=== PATIENT | male | born 1985 | race Caucasian/White ===

== ENCOUNTER 2019-06-16 03:09 | Emergency (ER) | payer SELFPAY ==
[~2019-06-16] VITALS: Ht 180.3 cm; Wt 81.6 kg
--- NOTE | 2019-06-16 03:10 | NUR ---
ED Nurse Note: PT BIBA RA 861 FROM HOME C/O GENERALIZED JOINT PAIN 01/12. PT DENIES FEVER OR FLANK PAIN. VSS, NAD. ERMD AT BEDSIDE
--- NOTE | 2019-06-16 03:15 | NUR ---
ED Nurse Note: BLOOD AND URINE COLLECTED AND SENT TO LAB
[2019-06-16] MEDS ORDERED: Ketorolac 30mg Inj IV ONE (03:30)
[2019-06-16] MEDS ORDERED: LORazepam Inj 2mg/ml 1ml IV ONE (03:30)
--- NOTE | 2019-06-16 03:31 | Emergency Room Report ---
History of Present Illness General Chief Complaint: Pain Source: Patient, EMS Present Illness HPI Disclaimer: Please note that this report is being documented using DRAGON technology. This can lead to erroneous entry secondary to incorrect interpretation by the dictating instrument. HPI: 34-year-old male history of ulcerative colitis presents for evaluation of joint pain. Complaining of pain sudden onset in his knees and elbows bilaterally. Cannot recall an injury. No prior history of similar pain. He has been started on prednisone for treatment of ulcerative colitis. No other changes in his medications. Did not take any medication prior to arrival. Denies limitation of range of motion, swelling, overlying cellulitis, redness, stiffness. States the pain is inside the joints feels like a burning and throbbing. Denies radiation of the pain. Denies any fevers, chills. Denies dysuria, hematuria. Denies abdominal pain, nausea, vomiting. PMH: Ulcerative colitis PSH: Multiple colonoscopies Allergies: Denies Social Hx: Denies COVID-19 risk:Travel to affect: No Has patient experienced mike: No Allergies: Coded Allergies: No Known Allergies (Unverified , 06/16/19) Nursing Documentation-PMH Past Medical History: No History, Except For Hx Gastrointestinal Problems: Yes - ULCERATIVE COLITIS Review of Systems All Other Systems: negative except mentioned in HPI Physical Exam Vital Signs Date Time Temp Pulse Resp B/P (MAP) Pulse Ox O2 Delivery O2 Flow Rate FiO2 06/16/19 03:04 98.2 98 140/92 (108) 99 Room Air General: Awake and alert, uncomfortable, writhing in bed HEENT: NC/AT. EOMI. Cardiovascular: RRR. S1 and S2 normal. No murmur appreciated Resp: Normal work of breathing. No cough, wheezing or crackles appreciated Abdomen: Abdomen is soft, nondistended. Nontender Skin: Intact. No abrasions, laceration or rash over the exposed skin MSK: Normal tone and bulk. Moving all extremities. No obvious deformity. Able to flex and extend pronate and supinate at the elbows. Able to flex and extend at the hips, knees and ankles. Neuro: Awake and alert. Mentating appropriately. Medical Decision Making Diagnostic Impression: Primary Impression: Polyarthritis ER Course 34-year-old male presents for evaluation of bilateral elbow and knee pain beginning acutely yesterday worsening throughout the day. He denies fever, chills arrives with stable vital signs though appears to be in acute distress regarding this pain. He is writhing in bed and difficult to redirect. Differential includes but is not limited to Inflammatory arthritis, rheumatoid arthritis, septic joints, osteoarthritis, spasticity, electrolyte abnormality, sepsis. Denies recent fever, URI symptoms, travel or exposure to sick contacts. Will obtain labs, inflammatory markers, treat the patient's pain and his anxiety. Septic joint is low on the differential as there is no edema, warmth, swelling or overlying erythema of any of the joints. Laboratory Tests Test 06/16/19 03:53 White Blood Count 17.2 K/UL (4.8-10.8) H Red Blood Count 4.36 M/UL (4.70-6.10) L Hemoglobin 9.6 G/DL (14.2-18.0) L Hematocrit 30.4 % (42.0-52.0) L Mean Corpuscular Volume 70 FL (80-99) L Mean Corpuscular Hemoglobin 22.0 PG (27.0-31.0) L Mean Corpuscular Hemoglobin Concent 31.4 G/DL (32.0-36.0) L Red Cell Distribution Width 26.7 % (11.6-14.8) H Platelet Count 897 K/UL (150-450) H Mean Platelet Volume 4.6 FL (6.5-10.1) L Neutrophils (%) (Auto) % (45.0-75.0) Lymphocytes (%) (Auto) % (20.0-45.0) Monocytes (%) (Auto) % (1.0-10.0) Eosinophils (%) (Auto) % (0.0-3.0) Basophils (%) (Auto) % (0.0-2.0) Differential Total Cells Counted 100 Neutrophils % (Manual) 70 % (45-75) Lymphocytes % (Manual) 20 % (20-45) Monocytes % (Manual) 8 % (1-10) Eosinophils % (Manual) 1 % (0-3) Basophils % (Manual) 1 % (0-2) Band Neutrophils 0 % (0-8) Platelet Estimate Increased H Platelet Morphology Normal Erythrocyte Sedimentation Rate 16 MM/HR (0-15) H Urine Color Pale yellow Urine Appearance Clear Urine pH 7 (4.5-8.0) Urine Specific [place] 1.015 (1.005-1.035) Urine Protein Negative (NEGATIVE) Urine Glucose (UA) Negative (NEGATIVE) Urine Ketones Negative (NEGATIVE) Urine Blood Negative (NEGATIVE) Urine Nitrite Negative (NEGATIVE) Urine Bilirubin Negative (NEGATIVE) Urine Urobilinogen Normal MG/DL (0.0-1.0) Urine Leukocyte Esterase Negative (NEGATIVE) Sodium Level 137 MMOL/L (136-145) Potassium Level 4.1 MMOL/L (3.5-5.1) Chloride Level 100 MMOL/L (98-107) Carbon Dioxide Level 25 MMOL/L (21-32) Anion Gap 12 mmol/L (5-15) Blood Urea Nitrogen 13 mg/dL (7-18) Creatinine 1.0 MG/DL (0.55-1.30) Estimate Glomerular Filtration Rate > 60 mL/min (>60) Glucose Level 112 MG/DL (74-106) H Uric Acid 6.9 MG/DL (2.6-7.2) Calcium Level 8.4 MG/DL (8.5-10.1) L C-Reactive Protein, Quantitative 1.8 mg/dL (0.00-0.90) H Urine Opiates Screen Negative (NEGATIVE) Urine Barbiturates Screen Negative (NEGATIVE) Phencyclidine (PCP) Screen Negative (NEGATIVE) Urine Amphetamines Screen Negative (NEGATIVE) Urine Benzodiazepines Screen Negative (NEGATIVE) Urine Cocaine Screen Negative (NEGATIVE) Urine Marijuana (THC) Screen Negative (NEGATIVE) Reevaluation Time: 06:31 Last Vital Signs Date Time Temp Pulse Resp B/P (MAP) Pulse Ox O2 Delivery O2 Flow Rate FiO2 06/16/19 03:04 98.2 98 140/92 (108) 99 Room Air Reevaluation Impression Labs show an elevation of white count of 17.2 but a normal differential. ESR and CRP are slightly elevated, chemistry within normal limits, UA and tox screen unremarkable. White count is likely due to his high-dose steroids. No signs of infection. Patient feels better after receiving his pain medication. Believe this is an inflammatory arthritis likely related to his ulcerative colitis. 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 We will discharge on ibuprofen and give a short course of breakthrough pain medication to use as needed. Also instructed him to follow- up with his PMD for referral to a rent and miscellaneous remittance clerk. We also discussed signs and symptoms of septic arthritis and other concerning signs and symptoms. He will follow-up with his PMD and his automatic spinning lathe setter. Disposition: HOME, SELF-CARE Condition: Improved Scripts Hydrocodone Bit/Acetaminophen 5-325* (NORCO 5-325 TABLET*) 1 Each Tablet 1 TAB ORAL Q6H PRN for FOR PAIN, #10 TAB 0 Refills Prov: Kenton Mcclelland MD 06/16/19 Ibuprofen* (MOTRIN*) 600 Mg Tablet 600 MG ORAL Q8H PRN for For Pain, #30 TAB 0 Refills Prov: Kenton Mcclelland MD 06/16/19 Referrals: NOT CHOSEN IPA/,REFERRING (PCP) Kenton Mcclelladn MD Jun 16, 2019 03:31
[2019-06-16 03:58] LABS: HEMATOCRIT 30.4 % (42.0-52.0); HEMOGLOBIN 9.6 G/DL (14.2-18.0); MEAN CORPUSCULAR VOLUME 70 FL (80-99); PLATELET COUNT 897 K/UL (150-450); RED BLOOD COUNT 4.36 M/UL (4.70-6.10); RED CELL DISTRIBUTION WIDTH 26.7 % (11.6-14.8); WHITE BLOOD COUNT 17.2 K/UL (4.8-10.8)
[2019-06-16 04:00] VITALS: BP 155/92
[2019-06-16 04:06] LABS: ANION GAP 12 mmol/L (5-15); BLOOD UREA NITROGEN 13 mg/dL (7-18); CALCIUM 8.4 MG/DL (8.5-10.1); CARBON DIOXIDE 25 MMOL/L (21-32); CHLORIDE 100 MMOL/L (98-107); POTASSIUM 4.1 MMOL/L (3.5-5.1); SODIUM 137 MMOL/L (136-145)
[2019-06-16 04:07] LABS: APPEARANCE,URINE CLEAR; BILIRUBIN, URINE NEGATIVE (NEGATIVE); COLOR,URINE PALE YELLOW; GLUCOSE, URINE (UA) NEGATIVE (NEGATIVE); KETONES,URINE NEGATIVE (NEGATIVE); LEUKOCYTE ESTERASE ,URINE NEGATIVE (NEGATIVE); NITRITE,URINE NEGATIVE (NEGATIVE); PH,URINE 7 (4.5-8.0); PROTEIN,URINE NEGATIVE (NEGATIVE); UROBILINOGEN,URINE NORMAL MG/DL (0.0-1.0)
[2019-06-16] MEDS ORDERED: Morphine Sulfate 4mg/ml Inj (IV USE ONLY) IVP ONE ×2 (05:00→06:15)
--- NOTE | 2019-06-16 05:00 | NUR ---
ED Nurse Note: Pt c/o 10/10 bilat knee pain. ermd made aware. will carry out order
[2019-06-16] MEDS ORDERED: IBUPROFEN600 MG ORAL (05:44)
--- NOTE | 2019-06-16 06:00 | NUR ---
ED Nurse Note: patient attempted to walk for d/c assessment. pt could only walk 2 steps, c/o bilat knee pain 12/13. ermd made aware. will carry out order
[2019-06-16] MEDS ORDERED: NORCO 5-325 TA1 EAC1 ORAL (06:01)
[2019-06-16 06:30] VITALS: BP_SYST 132; BP_DIAS 72; BP_DIAS 82
--- NOTE | 2019-06-16 06:30 | NUR ---
ER DISCHARGE NOTE: Patient is cleared to be discharged per ERMD, pt is aox4, on room air, with stable vital signs. pt was given dc and prescription instructions, pt was able to verbalize understanding, pt id band and iv site removed without complications. pt is able to ambulate with steady gait. pt took all belongings.
== END 2019-06-16 06:30 | disposition home or self-care (01) ==
LOC: EDBD 03:09 → EMR 03:19
DX: M13.0 Polyarthritis, unspecified (principal); K51.90 Ulcerative colitis, unspecified, without complications
CPT/HCPCS: 36415; 80048; 80307; 81003; 84550; 85007; 85025; 85651; 86140; 96374; 96375; 96376; 99284; J1885; J2270